=== PATIENT | female | born 1985 | race African-American/Black ===

== ENCOUNTER 2022-06-05 23:09 | Emergency (ER) | payer BC ==
[2022-06-06] MEDS ORDERED: Ibuprofen 200 MG TAB ONE (00:02)
== END 2022-06-06 00:33 | disposition home or self-care (01) ==
LOC: CSHERS 23:09
DX: U07.1 COVID-19 (principal); J06.9 Acute upper respiratory infection, unspecified; F17.210 Nicotine dependence, cigarettes, uncomplicated
CPT/HCPCS: 87081; 87430; 99283; U0003; U0005